=== PATIENT | female | born 1970 | race Caucasian/White ===

== ENCOUNTER → 2020-07-23 17:45 | Outpatient (CLI) | payer OTHER, SELFPAY ==
--- NOTE | ~2020-07-23 | MM_ITS ---
EXAMINATION: MM screening petty BI w marcel HISTORY: Screening mammogram TECHNIQUE: Craniocaudal and mediolateral oblique 3-D tomosynthesis images were obtained and synthetic 2-D images were generated. CAD analysis was submitted and interpreted. COMPARISON: No prior mammogram is available for comparison at this institution. BREAST PARENCHYMAL COMPOSITION: The breasts are heterogeneously dense, which may obscure small masses . FINDINGS: RIGHT BREAST: There is no evidence of suspicious mass, calcification, or architectural distortion to suggest malignancy. LEFT BREAST: Asymmetry is present in the posterior third of the outer breast on the mediolateral obli que view in line with the nipple axis. IMPRESSION: 1. Left breast asymmetry on the mediolateral oblique view. 2. Additional mammographic views and possible breast ultrasound are recommended. BI-RADS Category 0: Incomplete: Needs additional imaging evaluation. Reviewed, dictated and finalized at location A. [facility] IMPRESSION: 1. Left breast asymmetry on the mediolateral oblique view. 2. Additional mammographic views and possible breast ultrasound are recommended . BI-RADS Category 0: Incomplete: Needs additional imaging evaluation.
== END ==
PROVIDERS: PCP Family Medicine; Visit Provider Physician Assistant
DX: Z12.31 Encounter for screening mammogram for malignant neoplasm of breast (principal); R92.8 Other abnormal and inconclusive findings on diagnostic imaging of breast
CPT/HCPCS: 77063; 77067

== ENCOUNTER → 2020-10-18 06:57 | Outpatient (CLI) | payer OTHER, SELFPAY ==
[2020-10-18 18:19] LABS: SARS-CoV-2 RNA PCR Negative
== END ==
PROVIDERS: PCP Family Medicine; Visit Provider Physician Assistant
DX: Z20.822 Contact with and (suspected) exposure to COVID-19 (principal)
CPT/HCPCS: C9803; U0003; U0005

== ENCOUNTER → 2021-09-20 11:28 | Outpatient (CLI) | payer OTHER, SELFPAY ==
--- NOTE | ~2021-09-20 | MM_ITS ---
EXAMINATION: MM screening petty BI w marcel HISTORY: Screening TECHNIQUE: Craniocaudal and mediolateral oblique 3-D tomosynthesis images were obtained and synthetic 2-D images were generated. CAD analysis was submitted and interpreted. COMPARISON: 07/23/2020 BREAST PARENCHYMAL COMPOSITION: The breasts are heterogeneously dense, which may obscure small masses . FINDINGS: There is no evidence of suspicious mass, calcification, or architectural distortion to sugg est malignancy in either breast. There has been no suspicious interval change. IMPRESSION: 1. No mammographic evidence of malignancy. 2. Recommend routine screening mammography in one year. BI-RADS Category 1: Negative Reviewed, dictated and finalized at location B. [facility]
== END ==
PROVIDERS: PCP Family Medicine; Visit Provider Physician Assistant
DX: Z12.31 Encounter for screening mammogram for malignant neoplasm of breast (principal)
CPT/HCPCS: 77063; 77067

== ENCOUNTER → 2022-10-24 08:54 | Outpatient (CLI) | payer OTHER, SELFPAY ==
--- NOTE | ~2022-10-24 | MM_ITS ---
EXAMINATION: MM screening petty BI w marcel HISTORY: Screening mammogram TECHNIQUE: Craniocaudal and mediolateral oblique 3-D tomosynthesis images were obtained and synthetic 2-D images were generated. CAD analysis was submitted and interpreted. COMPARISON: 09/20/2021, 07/23/2020 bilateral screening mammogram examinations BREAST PARENCHYMAL COMPOSITION: The breasts are heterogeneously dense, which may obscure small masses . FINDINGS: There is no evidence of suspicious mass, calcification, or architectural distortion to sugg est malignancy in either breast. There has been no suspicious interval change. IMPRESSION: 1. No mammographic evidence of malignancy. 2. Recommend routine screening mammography in one year. BI-RADS Category 1: Negative Reviewed, dictated and finalized at location A. [facility]
== END ==
PROVIDERS: PCP Family Medicine; Visit Provider Family Medicine
DX: Z12.31 Encounter for screening mammogram for malignant neoplasm of breast (principal)
CPT/HCPCS: 77063; 77067

== ENCOUNTER 2023-12-18 09:52 | Outpatient (CLI) | payer OTHER, SELFPAY ==
--- NOTE | ~2023-12-18 | MM_ITS ---
EXAMINATION: MM screening petty BI w marcel HISTORY: Screening TECHNIQUE: Craniocaudal and mediolateral oblique 3-D tomosynthesis images were obtained and synthetic 2-D images were generated. CAD analysis was submitted and interpreted. COMPARISON: Comparison to multiple prior studies sequentially, with oldest reviewed study dated 07/07. BREAST PARENCHYMAL COMPOSITION: Not dense: There are scattered areas of fibroglandular density. FINDINGS: There is no evidence of suspicious mass, calcification, or architectural distortion to sugg est malignancy in either breast. There has been no suspicious interval change. IMPRESSION: 1. No mammographic evidence of malignancy. 2. Recommend routine screening mammography in one year. BI-RADS Category 1: Negative Reviewed, dictated and finalized at location A.
== END 2023-12-18 09:53 ==
LOC: MICIMG 09:53
PROVIDERS: PCP Physician Assistant; Visit Provider Physician Assistant
DX: Z12.31 Encounter for screening mammogram for malignant neoplasm of breast (principal)
CPT/HCPCS: 77063; 77067

== ENCOUNTER 2024-01-17 01:21 | Day surgery (SDC) | payer OTHER, SELFPAY ==
[2023-12-31 08:04] VITALS: BMI 23.8
[2024-01-17 09:07] VITALS: BP 141/87; PULSE 90; RESP 19; TEMP 36.5; O2SAT 100
--- NOTE | 2024-01-17 09:12 | PM.HPGS ---
History of Present Illness History of Present Illness Consent: Risks, benefits, and alternatives have been discussed and questions answered. Patient agrees to proceed with procedure. Chief complaint: neoplasm screening Narrative: Fantasma Jaimes is a 53 year old female here for first screening colonoscopy Review of Systems Review of Systems: All systems reviewed & are unremarkable except as noted in HPI and below PMFSH Past Medical History Medical History (Updated 01/17/24 @ 09:16 by Ottnoiel Rendon MD) Annual physical exam Breast screening Colon cancer screening Family History Family History Father Family history of lung cancer, Onset Age: 70 Social History Social History Social History: Smoking packs per day: 0.1 Smoking cigarettes per day: 2.0 Years smoked: 29 Smoking pack-years: 2.90 Smoking status: Light tobacco smoker Tobacco type: e-cigarettes/vaping Alcohol intake: current Drinks per week: 3 Alcohol use details: Occasionally Substance use: never Substance use type: does not use Living arrangements: with family Occupation/Education: occupation Gender identity (if verbalized by the patient): Female Sexual Orientation (if Verbalized by the Patient): Straight or Heterosexual Spiritual care concerns: No Meds Home Medications and Allergies Home Medications Medication Instructions Recorded Confirmed Type No Home Medications 07/23/20 12/31/23 History Allergies Allergy/AdvReac Type Severity Reaction Status Date / Time Penicillins Allergy Unknown Hives Verified 01/17/24 09:06 Vital Signs Vital Signs - 24 hr 01/17/24 09:07 Temperature 97.7 F Pulse Rate 90 Respiratory Rate 19 Blood Pressure 141/87 H Pulse Oximetry 100 Oxygen Delivery Room Air Exam Const: General: comfortable and no acute distress HENMT: Face/Nose/Sinus: Normal nares present Eyes: General: appearance normal, both eyes and all related structures Neck: Neck: no JVD Resp: Auscultation: clear to auscultation bilaterally Cardio: Rate: regular rate Rhythm: regular rhythm GI: Inspection: non-distended GI Palp: Yes Soft to palpation Skin: General skin exam: normal color Neuro: General: gait normal Speech: normal speech Extrem: General: normal to inspection Psych: Mental Status: mental status grossly normal Assessment and Plan Assessment and plan (1) Colon cancer screening: Code(s): Z12.11 - Encounter for screening for malignant neoplasm of colon Status: Acute Assessment and Plan: colonoscopy
[2024-01-17] MEDS: LACTATED RINGERS 1,000 ML 150 ML IV CONT (09:15)
--- NOTE | 2024-01-17 09:18 | WPDANESEPPF ---
Anes - Initial Pre Proc Eval Procedure: Operation Date: 01/17/24 10:30 Proposed Procedures p Screening Colonoscopy - Ottoniel Rendon MD Date/Time: 01/17/24 09:18 Surgeon: Ottoniel Rendon MD Pre Op Diagnosis: neoplasm screening Patient Data Age: 53 Gender: F Height: 1.57 m Weight: 63 kg Last Vital Signs Temp 97.7 F 01/17/24 09:07 Pulse 90 01/17/24 09:07 Resp 19 01/17/24 09:07 BP 141/87 H 01/17/24 09:07 Pulse Ox 100 01/17/24 09:07 O2 Del Method Room Air 01/17/24 09:07 Allergies Allergy/AdvReac Type Severity Reaction Status Date / Time Penicillins Allergy Unknown Hives Verified 01/17/24 09:06 Home Medications Medication Instructions Recorded Confirmed Type No Home Medications 07/23/20 12/31/23 History Patient hx anesthesia problems: none Family hx anesthesia problems: none Results Review: All pre-operative results and documents have been reviewed as part of the pre-operative evaluation. COUNT INCLUDES THE [facility] Past Medical History Medical History (Updated 01/17/24 @ 09:16 by Ottoniel Rendon MD) Annual physical exam Breast screening Colon cancer screening Family History Family History Father Family history of lung cancer, Onset Age: 70 Social History Social History Social History: Smoking packs per day: 0.1 Smoking cigarettes per day: 2.0 Years smoked: 29 Smoking pack-years: 2.90 Smoking status: Light tobacco smoker Tobacco type: e-cigarettes/vaping Alcohol intake: current Drinks per week: 3 Alcohol use details: Occasionally Substance use: never Substance use type: does not use Living arrangements: with family Occupation/Education: occupation Gender identity (if verbalized by the patient): Female Sexual Orientation (if Verbalized by the Patient): Straight or Heterosexual Spiritual care concerns: No Anes - Eval Final PreProcedure Day of Procedure 01/17/24 09:18 Patient weight: normal Heart: regular rate and rhythm Lungs: clear to auscultation Airway: Mallampati scale class II Neurological: alert and oriented Last oral intake: >/= 8 hours ASA classification: II Emergent: no Anesthetic plan: proceed Anesthesia type and monitoring: general GIVS and standard monitoring Results Review: All pre-operative results and documents have been reviewed as part of the pre-operative evaluation. Informed Consent: The patient's anesthetic plan and its attendant risks and benefits were discussed with the patient/family/POA. Questions were solicited and answers provided to the satisfaction of the patient/family/POA.
[2024-01-17 09:45] VITALS: BP 94/55; PULSE 80; RESP 20; O2SAT 100
[2024-01-17 09:55] VITALS: BP 103/71; PULSE 76; RESP 20; O2SAT 100
[2024-01-17 10:05] VITALS: BP 126/92; PULSE 78; RESP 18; O2SAT 100
== END 2024-01-17 10:19 | disposition home or self-care (01) ==
PROVIDERS: PCP Physician Assistant; Visit Provider Internal Medicine Gastroenterology
PROC: 0DJD8ZZ Inspection of Lower Intestinal Tract, Via Natural or Artificial Opening Endoscopic (ICD-10-PCS; CPT 45378; principal; 2024-01-17 10:30)
DX: Z12.11 Encounter for screening for malignant neoplasm of colon (principal); D12.0 Benign neoplasm of cecum; F17.290 Nicotine dependence, other tobacco product, uncomplicated; Z80.1 Family history of malignant neoplasm of trachea, bronchus and lung
CPT/HCPCS: 45385; 88305; J2704; J7120

== ENCOUNTER 2025-01-10 08:15 | Outpatient (CLI) | payer OTHER, SELFPAY | END 2025-01-10 08:16 | disposition home or self-care (01) | PROVIDERS: PCP Family Medicine; Visit Provider Physician Assistant Medical | DX: R00.2 Palpitations (principal) | CPT/HCPCS: 93242 ==

== ENCOUNTER 2025-02-24 08:23 | Outpatient (CLI) | payer OTHER, SELFPAY ==
--- NOTE | ~2025-02-24 | MM_ITS ---
EXAMINATION: MM screening petty BI w marcel HISTORY: Screening mammogram TECHNIQUE: Craniocaudal and mediolateral oblique 3-D tomosynthesis images were obtained and synthetic 2-D images were generated. CAD analysis was submitted and interpreted. COMPARISON: 12/18/2023, 10/24/2022, 09/20/2021, 07/23/2020 BREAST PARENCHYMAL COMPOSITION:Dense: The breasts are heterogeneously dense, which may obscure small masses. FINDINGS: No suspicious mass, calcification, or architectural distortion are identified in either mercy ast to suggest malignancy. There has been no suspicious interval change. IMPRESSION: No mammographic evidence of malignancy. Recommend routine screening mammography in one year. BI-RADS Category 1: Negative Reviewed, dictated and finalized at location .
== END 2025-02-24 08:24 | disposition home or self-care (01) ==
LOC: MICIMG 08:24
PROVIDERS: PCP Family Medicine
DX: Z12.31 Encounter for screening mammogram for malignant neoplasm of breast (principal)
CPT/HCPCS: 77063; 77067